=== PATIENT | male | born 1950 ===

== ENCOUNTER 2021-09-23 19:58 | Emergency (ER) | payer SELFPAY ==
[~2021-09-23] VITALS: Ht 172.7 cm; Wt 55.0 kg
[2021-09-23 22:35] VITALS: BP 126/78
== END 2021-09-23 22:37 | disposition home or self-care (01) ==
LOC: ER 19:58
DX: Z43.0 Encounter for attention to tracheostomy (principal); Z85.6 Personal history of leukemia
CPT/HCPCS: 99283